=== PATIENT | male | born 1955 | race Caucasian/White ===

== ENCOUNTER 2025-01-26 20:12 | Emergency (ER) | payer MEDICARE ==
[2025-01-26 20:20] VITALS: TEMP 97.5
--- NOTE | 2025-01-26 20:26 | ED ---
Chest Pain HPI - General Chief Complaint: Chest Pain Stated Complaint: chest pain, abd pain Time Seen by Provider: 01/26/25 20:24 Source: patient, RN notes reviewed, old records reviewed Mode of arrival: wheelchair Limitations: no limitations - History of Present Illness Initial Comments: This is a 69 male to ER for evaluation patient presents today for evaluation of chest pain but mainly complaining of abdominal pain right upper quadrant abdominal pain persistent abdominal pain here in the ER. Patient states he thinks it is his gallbladder history of gallbladder disease and occurred after eating dinner tonight. Patient still has abdominal pain here with nausea and vomiting. No history of high blood pressure high cholesterol or diabetes MD Complaint: chest pain -: hour(s) Onset: during rest, after eating Pain Location: right chest, epigastric Pain Radiation: abdomen (Right upper quadrant) Severity: moderate Severity scale (1-10): 4 Quality: aching, sharp Consistency: constant Improves With: nothing Worsens With: nothing Anginal Symptoms: nausea, vomiting Treatments Prior to Arrival: none - Related Data Allergies Allergy/AdvReac Type Severity Reaction Status Date / Time Penicillins AdvReac Vomiting Verified 01/26/25 20:18 Review of Systems ROS Statement: Those systems with pertinent positive or pertinent negative responses have been documented in the HPI. ROS Other: All systems not noted in ROS Statement are negative. EKG Findings - EKG Comments: EKG Findings:: EKG is sinus tachycardia 102 WI 164 QRS 104 QTc 394 - EKG Results: EKG: interpreted by NINA Past Medical History Past Medical History: No Reported History History of Any Multi-Drug Resistant Organisms: None Reported Additional Past Surgical History / Comment(s): tonsil removal Past Psychological History: No Psychological Hx Reported Smoking Status: Never smoker Past Alcohol Use History: None Reported Past Drug Use History: None Reported General Exam Limitations: no limitations General appearance: alert, in no apparent distress Head exam: Present: atraumatic, normocephalic, normal inspection Eye exam: Present: normal appearance, PERRL, EOMI. Absent: scleral icterus, conjunctival injection, periorbital swelling ENT exam: Present: normal exam, mucous membranes moist Neck exam: Present: normal inspection. Absent: tenderness, meningismus, lymphadenopathy Respiratory exam: Present: normal lung sounds bilaterally. Absent: respiratory distress, wheezes, rales, rhonchi, stridor Cardiovascular Exam: Present: regular rate, normal rhythm, normal heart sounds. Absent: systolic murmur, diastolic murmur, rubs, gallop, clicks GI/Abdominal exam: Present: soft, tenderness, normal bowel sounds. Absent: distended, guarding, rebound, rigid Extremities exam: Present: normal inspection, full ROM, normal capillary refill. Absent: tenderness, pedal edema, joint swelling, calf tenderness Back exam: Present: normal inspection Neurological exam: Present: alert, oriented X3, CN II-XII intact Psychiatric exam: Present: normal affect, normal mood Skin exam: Present: warm, dry, intact, normal color. Absent: rash Course Vital Signs 01/26/25 01/26/25 20:20 20:44 Temperature 97.5 F L Pulse Rate 101 H 101 H Respiratory 20 17 Rate Blood Pressure 160/96 144/90 O2 Sat by Pulse 94 L 91 L Oximetry - Reevaluation(s) Reevaluation #1: 01/26/25 22:09 Medical records reviewed Reevaluation #2: 01/26/25 22:09 Patient symptoms improved Reevaluation #3: 01/26/25 22:09 Patient informed of results questions answered Reevaluation #4: Was pt. sent in by a medical professional or institution (, PA, WELLNESS MANAGER, urgent care, hospital, or penitentiary...) When possible be specific @ -no Did you speak to anyone other than the patient for history (EMS, parent, family, police, friend...)? What history was obtained from this source @ -no Did you review nursing and triage notes (agree or disagree)? Why? @ -agree Are old charts reviewed (outside hosp., previous admission, EMS record, old EKG, old radiological studies, urgent care reports/EKG's, penitentiary records)? Report findings @ -yes Differential Diagnosis (chest pain, altered mental status, abdominal pain women, abdominal pain men, vaginal bleeding, weakness, fever, dyspnea, syncope, headache, dizziness, GI bleed, back pain, seizure, CVA, palpatations, mental health, musculoskeletal)? @ -prior EKG interpreted by me (3pts min.). @ -yes X-rays interpreted by me (1pt min.). @ -yes negative for acute disease CT interpreted by me (1pt min.). @ -no U/S interpreted by me (1pt. min.). @ -no What testing was considered but not performed or refused? (CT, X-rays, U/S, labs)? Why? @ -none What meds were considered but not given or refused? Why? @ -none Did you discuss the management of the patient with other professionals (professionals i.e. , PA, WELLNESS MANAGER, lab, RT, psych nurse, social services, mender hand, teacher, licensed mortgage loan officer, nurse outreach case manager)? Give summary @ -no Was smoking cessation discussed for >3mins.? @ -no Was critical care preformed (if so, how long)? @ -no Were there social determinants of health that impacted care today? How? (Homelessness, low income, unemployed, alcoholism, drug addiction, transportation, low edu. Level, literacy, decrease access to med. care, nursing home, rehab)? @ -none Was there de-escalation of care discussed even if they declined (Discuss DNR or withdrawal of care, Hospice)? DNR status @ -no What co-morbidities impacted this encounter? (DM, HTN, Smoking, COPD, CAD, Cancer, CVA, ARF, Chemo, Hep., AIDS, mental health diagnosis, sleep apnea, morbid obesity)? @ -none Was patient admitted / discharged? Hospital course, mention meds given and route, prescriptions, significant lab abnormalities, going to OR and other pertinent info. @ - Undiagnosed new problem with uncertain prognosis? @ -no Drug Therapy requiring intensive monitoring for toxicity (Heparin, Nitro, Insulin, Cardizem)? @ -no Were any procedures done? @ -no Diagnosis/symptom? @ - Acute, or Chronic, or Acute on Chronic? @ -Acute Uncomplicated (without systemic symptoms) or Complicated (systemic symptoms)? @ -Complicated Side effects of treatment? @ -no Exacerbation, Progression, or Severe Exacerbation? @ -exacerbation Poses a threat to life or bodily function? How? (Chest pain, [place], [place], pneumonia, PE, COPD, DKA, ARF, appy, cholecystitis, CVA, Diverticulitis, Homicidal, Suicidal, threat to staff... and all critical care pts) @ -yes Reevaluation #5: Differential Abdominal Pain Men: Appendicitis, cholecystitis, diverticulosis, ischemic bowel, pancreatitis, hepatitis, UTI, gastroenteritis, AAA, incarcerated hernia, bowel obstruction, constipation, inflammatory bowel, hepatitis, peptic ulcer disease, splenic infarction, perforated viscus, testicular torsion, this is not meant to be an all-inclusive list Differential Chest Pain: Stable Angina, Unstable Angina, STEMI, NSTEMI Aortic Dissection, Pneumothorax, Musculoskeletal, Esophageal Spasm GERD, Cholecystitis, Pancreatitis, Zoster, this is not meant to be an all-inclusive list. Disposition Clinical Impression: Biliary colic Disposition: HOME SELF-CARE Instructions (If sedation given, give patient instructions): Biliary Colic (ED) Referrals: Rubens Mena MD [Primary Care Provider] - 1-2 days Justino De La Vega DO [Medical Doctor] - 1-2 days Time of Disposition: 23:00
[2025-01-26] MEDS: HYDROmorphone 1 MG/ML 1 ML SYRINGE IVP STA (20:42)
[2025-01-26 20:49] VITALS: RESP 17
[2025-01-26 20:52] LABS: Basophils # (A) 0.06 10*3/uL (0.00-0.10); Basophils % (A) 0.6 %; Eosinophils # (A) 0.29 10*3/uL (0.04-0.35); Eosinophils % (A) 2.9 %; HCT 38.4 % (39.6-50.0); HGB 12.8 g/dL (13.0-17.0); Lymphocytes % (A) 20.9 %; MCH 29.9 pg (27.0-32.0); MCHC 33.3 g/dL (32.0-37.0); MCV 89.7 fL (80.0-97.0); Mean Platelet Volume 9.6 fL (9.5-12.2); Monocytes # (A) 0.72 10*3/uL (0.20-1.00); Monocytes % (A) 7.2 %; Neutrophils % (A) 67.7 %; Platelet Count 396 10*3/uL (140-440); RBC 4.28 10*6/uL (4.40-5.60); RDW 13.2 % (11.5-14.5); WBC 10.04 10*3/uL (4.50-10.00)
[2025-01-26] MEDS: KETOROLAC 15 MG/ML 1 ML VIAL IVP STA (20:52)
[2025-01-26] MEDS: ONDANSETRON 4 MG/2 ML VIAL IVP STA (20:53)
[2025-01-26] MEDS: PANTOPRAZOLE 40 MG/10 ML VIAL IVP STA (20:55)
--- NOTE | 2025-01-26 20:56 | XR ---
EXAMINATION TYPE: XR chest 2V DATE OF EXAM: 01/26/2025 8:51 PM COMPARISON: None. CLINICAL INDICATION: Male, 69 years old with history of Chest Pain; [facility] TECHNIQUE: XR chest 2V Frontal and lateral views of the chest. FINDINGS: Lungs/Pleura: There is no evidence of pleural effusion, focal consolidation, or pneumothorax. Asymme tric elevation of the left diaphragm with associated left lower lobe compressive atelectasis. Pulmonary vascularity: Unremarkable. Heart/mediastinum: Cardiomediastinal silhouette is unremarkable. Musculoskeletal: No acute osseous pathology. Other findings: None IMPRESSION: No acute cardiopulmonary disease/process. [facility], , 01/26/2025 8:54 PM
[2025-01-26 21:05] LABS: ALT 24 U/L (4-49); African American GFR (CKD) >90 (>60 ml/min/1.73 sqM); Anion Gap 10 mmol/L; Blood Urea Nitrogen 13 mg/dL (9-20); Calcium 9.1 mg/dL (8.4-10.2); Carbon Dioxide 27 mmol/L (22-30); Chloride 103 mmol/L (98-107); Glucose 169 mg/dL (74-99); Lipase 106 U/L (23-300); Non-African American GFR(CKD) >90 (>60 ml/min/1.73 sqM); Sodium 140 mmol/L (137-145); Total Bilirubin 0.5 mg/dL (0.2-1.3); Total Protein 7.4 g/dL (6.3-8.2)
[2025-01-26 21:06] LABS: INR 0.9 (<1.2)
[2025-01-26 21:07] LABS: Prothrombin Time 10.2 sec (10.0-12.5)
[2025-01-26 21:13] LABS: NT-Pro-B-Type Natriuretic Pept 41 pg/mL
[2025-01-26 21:17] LABS: AST 37 U/L (17-59); Alkaline Phosphatase 52 U/L (38-126); Magnesium 2.2 mg/dL (1.6-2.3); Potassium 4.6 mmol/L (3.5-5.1)
--- NOTE | 2025-01-26 21:19 | US ---
EXAMINATION TYPE: US gallbladder DATE OF EXAM: 01/26/2025 COMPARISON: NONE CLINICAL INDICATION: Male, 69 years old with history of pain; RUQ pain x 2 hours after eating TECHNIQUE: Grayscale and color Doppler imaging of the right upper quadrant was performed. FINDINGS: EXAM MEASUREMENTS: Liver Length: 15.4 cm Gallbladder Wall: 0.24 cm CBD: 0.42 cm Right Kidney: 10.0 x 4.8 x 4.9 cm CLOTH NEUTRALIZER NOTES: Limited due to bowel gas and body habitus Pancreas: Obscured by bowel gas Liver: wnl Gallbladder: Cholelithiasis without definite sonographic evidence of gallbladder wall thickening or adjacent pericholecystic fluid. Gallbladder lumen is mildly distended measuring 10 cm in length. Evidence for sonographic Monzon's sign: No CBD: wnl Right Kidney: wnl IMPRESSION: Cholelithiasis and mildly distended gallbladder lumen without convincing sonographic evidence of acut e cholecystitis. Consider nuclear medicine HIDA scan if there is continued clinical concern for acute cholecystitis. [facility], , 01/26/2025 9:16 PM
--- NOTE | 2025-01-26 22:07 | CT ---
EXAMINATION TYPE: CT abdomen pelvis w con DATE OF EXAM: 01/26/2025 9:58 PM COMPARISON: None available. CLINICAL INDICATION: Male, 69 years old with history of cp; right sided abdominal pain, tenderness TECHNIQUE: Axial CT abdomen pelvis w con;Sagittal and coronal reformats were created on a separate w orkstation. Contrast used:100 mL of Isovue 300 with IV Contrast, (none if empty) Oral contrast used: without Oral Contrast (none if empty) CT DLP: 3019 combined mGycm, Automated exposure control for dose reduction was used. FINDINGS: LOWER CHEST: Asymmetric elevation of the right hemidiaphragm. ABDOMEN LIVER: Unremarkable GALLBLADDER AND BILE DUCTS: Layering increased densities within the lumen consistent with gallstones are present. PANCREAS: Unremarkable. SPLEEN: Unremarkable. ADRENAL GLANDS: Unremarkable. KIDNEYS AND URETERS: No evidence of hydronephrosis or renal calculus. The ureters are unremarkable. PELVIS BLADDER: No evidence for wall thickening or mass given limitations of exam. REPRODUCTIVE: Unremarkable. ABDOMEN & PELVIS STOMACH AND BOWEL: Stomach is unremarkable. Small duodenal diverticulum. No evidence of bowel obstruc tion. PERITONEUM/RETROPERITONEUM: No evidence of pneumoperitoneum or free fluid. VASCULATURE: No evidence of aortic aneurysm. MUSCULOSKELETAL: No acute osseous abnormalities LYMPH NODES: No gross evidence for lymphadenopathy. SOFT TISSUE/ABDOMINAL WALL: Fat-containing. Local hernia. IMPRESSION: 1. No acute abnormality in the abdomen/pelvis or CT findings to extent reported symptoms. 2. Cholelithiasis. [facility], , 01/26/2025 10:04 PM
--- NOTE | 2025-01-26 22:15 | CT ---
EXAMINATION TYPE: CT angio chest DATE OF EXAM: 01/26/2025 9:58 PM COMPARISON: None. CLINICAL INDICATION: Male, 69 years old with history of cp; chest pain/pressure TECHNIQUE/CONTRAST: CTA scan of the thorax is performed with IV Contrast, patient injected with 100 mL of Isovue 370, MIP images are created and reviewed these are created on a separate workstation.. CT DLP: 3019 combined mGycm, Automated exposure control for dose reduction was used. FINDINGS: Pulmonary Artery: Nearly nondiagnostic examination for acute pulmonary embolism given suboptimal marito ng of contrast bolus. Lungs/Pleura: Asymmetric elevation of the left hemidiaphragm with lower lobe atelectasis bilaterally. Right middle lobe consolidative changes which could reflect atelectasis and/or pneumonia. Airway: Large airways are patent. Heart: Heart is within normal limits for size. Coronary artery calcifications. Vasculature: No evidence of aortic aneurysm. No acute focal dissection. Mediastinum: No gross evidence of adenopathy. Musculoskeletal: No acute osseous abnormalities Soft Tissues/lymph nodes: Unremarkable. Lower neck: No significant findings. Upper Abdomen: No significant findings. IMPRESSION: 1. Essentially nondiagnostic examination for acute pulmonary embolism due to suboptimal timing of co ntrast bolus. No definite central/main pulmonary embolism. Consider repeat examination if there is co ntinued underlying clinical concern for acute pulmonary embolism. 2. Lower lobe atelectasis and right middle lobe consolidative changes which could reflect additional atelectasis and/or pneumonia. [facility], , 01/26/2025 10:13 PM
[2025-01-26 22:55] VITALS: BP 100/68; PULSE 76
== END 2025-01-26 23:08 | disposition home or self-care (01) ==
LOC: EC 20:12
DX: K80.70 Calculus of gallbladder and bile duct without cholecystitis without obstruction (principal); Z88.0 Allergy status to penicillin
CPT/HCPCS: 36415; 93005; 85379; 83880; 80053; 83690; 83735; 84484; 85025; 85610; 85730; 71046; 76705; 71275; 74177; 99285; 96374; 96375; J2405; J1171; J1885; Q9967; J2470

== ENCOUNTER 2025-04-04 07:38 | Day surgery (SDC) | payer MEDICARE ==
[~2025-04-04 07:38] MED LIST: LIDOCAINE 1% (10MG/ML) FOR IV START INTRADERMA PRN
--- NOTE | 2025-04-04 07:41 | P.GSHP ---
History of Present Illness H&P Date: 04/04/25 CHIEF COMPLAINT: Dysphagia and colon screen HISTORY OF PRESENT ILLNESS: The patient is a 70-year-old male who presents with dysphagia, gastroesophageal reflux disease and need for colon screen. Upper and lower endoscopy were offered for further evaluation and management. PAST MEDICAL HISTORY: Please see list. PAST SURGICAL HISTORY: Please see list. MEDICATIONS: Please see list. ALLERGIES: Please see list. SOCIAL HISTORY: No illicit drug use FAMILY HISTORY: No reports of Crohn disease or ulcerative colitis. REVIEW OF ORGAN SYSTEMS: CONSTITUTIONAL: No reports of fevers or chills. GI: Denies any blood in stools or constipation. PHYSICAL EXAM: VITAL SIGNS: Stable GENERAL: Well-developed pleasant in no acute distress. HEENT: No scleral icterus. Extraocular movements grossly intact. Moist buccal mucosa. NECK: Supple without lymphadenopathy. CHEST: Unlabored respirations. Equal bilateral excursions. CARDIOVASCULAR: Regular rate and rhythm. Distal 2+ pulses. ABDOMEN: Soft, nondistended. MUSCULOSKELETAL: No clubbing, cyanosis, or edema. ASSESSMENT: 1. Dysphagia and gastroesophageal reflux disease 2. Colon screen. PLAN: 1. Recommend proceeding with an upper and lower endoscopy Past Medical History Past Medical History: No Reported History History of Any Multi-Drug Resistant Organisms: None Reported Additional Past Surgical History / Comment(s): tonsil removal Past Psychological History: No Psychological Hx Reported Smoking Status: Never smoker Past Alcohol Use History: None Reported Past Drug Use History: None Reported Medications and Allergies Allergies Allergy/AdvReac Type Severity Reaction Status Date / Time Penicillins AdvReac Vomiting Verified 01/26/25 20:18
[2025-04-04 09:05] LABS: Glucose,Whole Blood 103 mg/dL (70-110)
[2025-04-04] MEDS: LACTATED RINGERS 1,000 ML IV SCH (09:05)
[2025-04-04] MEDS: IV FLUID CONTINUATION 1,000 ML IV ONE (09:05)
[2025-04-04 09:10] VITALS: RESP 16; TEMP 97.3
[2025-04-04] MEDS ORDERED: LIDOCAINE 2% (PF) 20 MG/ML 5 ML VIAL ONE (09:10)
[2025-04-04] MEDS ORDERED: PROPOFOL 10 MG/ML 20 ML VIAL IV ONE (09:10)
--- NOTE | 2025-04-04 09:22 | P.PCN ---
Date of Procedure: 04/04/25 Description of Procedure: PREOPERATIVE DIAGNOSIS: Gastroesophageal reflux disease. Morbid obesity. Acute gastric ulcers POSTOPERATIVE DIAGNOSIS: Gastroesophageal reflux disease. Duodenal polyps Gastritis. OPERATION: Esophagogastroduodenoscopy with cold forceps biopsies along esophagus, antrum and duodenum SURGEON: Alisa Marie MD ANESTHESIA: MAC. INDICATIONS: The patient is a 70-year-old male who presents with gastric ulcers and reflux disease. Benefits and risks of the procedure were described. Informed consent was obtained. DESCRIPTION: The patient was brought into the endoscopy suite and laid in the left lateral decubitus position. An Olympus gastroscope was passed along the posterior oropharynx down to the distal esophagus where the squamocolumnar junction was encountered at 40 cm from the incisors. The stomach was entered and no bile reflux was found. Additional findings are listed below. Biopsies with cold forceps were obtained of the antrum. The first through third portion of the duodenum was examined. Retroflexion of the scope confirmed Hill grade 2 lower esophageal valve. The squamocolumnar junction demonstrated LA grade B erosive esophagitis. The stomach was desufflated. The patient tolerated the procedure well. FINDINGS: Squamocolumnar junction 40 cm from the incisors. Diaphragmatic hiatus at 40 cm. Hill grade 2 lower esophageal valve. LA grade B erosive esophagitis. Biopsies obtained Biopsies obtained of the duodenum. Chronic gastritis with biopsies obtained. Multiple 3 mm duodenal polyp/adenomas first portion of the duodenum, biopsy RECOMMENDATIONS: Repeat upper endoscopy in 1 year, 2025
--- NOTE | 2025-04-04 09:41 | P.PCN ---
Date of Procedure: 04/04/25 Description of Procedure: PREOPERATIVE DIAGNOSIS: Colonoscopy screening POSTOPERATIVE DIAGNOSIS: Tubular adenoma rectum Internal hemorrhoids, grade 3 OPERATION: Colonoscopy to the ascending colon Colonoscopy with hot snare polypectomy SURGEON: Alisa Marie MD. ANESTHESIA: MAC. INDICATIONS: The patient is an 70-year-old male who presents for colon cancer screening. This is his first. Benefits and risks were described and informed consent was obtained. DESCRIPTION OF PROCEDURE: The patient had undergone Suprep. The patient had been brought into the operating room and laid in the left lateral decubitus position. After adequate intravenous sedation, the rectum was examined with 2% lidocaine jelly. The prostate was unremarkable. External hemorrhoids were encountered. The rectal tone was within normal limits. No lesions were palpated in the rectal vault. An Olympus colonoscope was advanced to the ascending colon despite multiple abdominal pressure. The entire scope including polyp was inserted into the rectum with still moderate redundant colon identified. The prep was excellent. No sigmoid diverticulosis was encountered. Colonic polyps were found and removed. No evidence of focal colitis was found. Retroflexion of the scope demonstrated grade 2 internal hemorrhoids without active bleeding or inflammation. The colon was desufflated. The patient had tolerated the procedure well. Withdrawal time was over 6 minutes. FINDINGS: Aronchick preparation quality scale 1 (1-5) Internal hemorrhoids, grade 3 External hemorrhoids, grade 3. No arteriovenous malformations. No sigmoid diverticulosis Removal of 3 polyps: - Snare polypectomy 10 cm from the anal verge x 3, 4 - 6 mm tubulovillous adenoma polyp. No focal colitis. RECOMMENDATIONS: Repeat colonoscopy 3 years2027 Plan - Discharge Summary New Discharge Prescriptions: Continue Ezetimibe [Zetia] 10 mg PO DAILY lisinopriL [Zestril] 10 mg PO DAILY Discharge Medication List Ezetimibe [Zetia] 10 mg PO DAILY 04/04/25 [History] lisinopriL [Zestril] 10 mg PO DAILY 04/04/25 [History] Follow up Appointment(s)/Referral(s): Alisa Marie MD [STAFF PHYSICIAN] - 04/23/25 1:30 pm Patient Instructions/Handouts: Colorectal Polyps (GEN), Gastritis (DC) Activity/Diet/Wound Care/Special Instructions: Follow-up colonoscopy 3 years, 2027 Discharge Disposition: HOME SELF-CARE
[2025-04-04 09:57] VITALS: BP 143/89; PULSE 67
== END 2025-04-04 10:21 | disposition home or self-care (01) ==
LOC: ORWHC2ENDO 07:38
PROVIDERS: ATTEND Surgery Plastic and Reconstructive Surgery
DX: Z12.11 Encounter for screening for malignant neoplasm of colon (principal); K25.3 Acute gastric ulcer without hemorrhage or perforation; K29.50 Unspecified chronic gastritis without bleeding; K21.00 Gastro-esophageal reflux disease with esophagitis, without bleeding; K62.1 Rectal polyp; K31.7 Polyp of stomach and duodenum; K64.2 Third degree hemorrhoids; E66.01 Morbid (severe) obesity due to excess calories; Z88.0 Allergy status to penicillin
CPT/HCPCS: 45385; 43239; J2704; J2003; 88305

== ENCOUNTER 2025-04-26 08:09 | Day surgery (SDC) | payer MEDICARE ==
[2025-04-25 10:34] VITALS: BMI 37.4
[~2025-04-26 08:09] MED LIST changes: +HYDROmorphone 0.5 MG/0.5 ML SYRINGE IVP PRN; +INDOCYANINE GREEN 25 MG VIAL IV STA
[2025-04-26] MEDS: IV FLUID CONTINUATION 1,000 ML IV ONE (08:34)
[2025-04-26] MEDS: LACTATED RINGERS 1,000 ML IV SCH (08:34)
[2025-04-26] MEDS: HEPARIN SODIUM,PORCINE 5,000 UNIT/ML 1 ML VIAL SQ PRN (08:43)
[2025-04-26] MEDS: ONDANSETRON 4 MG/2 ML VIAL IVP PRN (08:43)
[2025-04-26] MEDS: ACETAMINOPHEN TAB 500 MG TAB PO PRN (08:43)
[2025-04-26] MEDS: DEXAMETHASONE SOD PHOSPHATE 4 MG/ML 1 ML VIAL IV ONE (08:44)
[2025-04-26 08:55] LABS: Basophils # (A) 0.05 10*3/uL (0.00-0.10); Basophils % (A) 0.6 %; Eosinophils # (A) 0.26 10*3/uL (0.04-0.35); Eosinophils % (A) 3.0 %; HCT 39.9 % (39.6-50.0); HGB 13.3 g/dL (13.0-17.0); Lymphocytes # (A) 2.03 10*3/uL (0.90-5.00); Lymphocytes % (A) 23.3 %; MCH 29.6 pg (27.0-32.0); MCHC 33.3 g/dL (32.0-37.0); MCV 88.9 fL (80.0-97.0); Monocytes # (A) 0.55 10*3/uL (0.20-1.00); Monocytes % (A) 6.3 %; Neutrophils # (A) 5.80 10*3/uL (1.80-7.70); Neutrophils % (A) 66.6 %; Platelet Count 328 10*3/uL (140-440); RBC 4.49 10*6/uL (4.40-5.60); RDW 13.5 % (11.5-14.5); WBC 8.71 10*3/uL (4.50-10.00)
[2025-04-26 09:07] LABS: Glucose,Whole Blood 113 mg/dL (70-110)
[2025-04-26] MEDS ORDERED: LIDOCAINE 1% INJ 10MG/ML (20 ML MDV) ONE (09:09)
[2025-04-26] MEDS ORDERED: SUCCINYLCHOLINE CHLORIDE 200 MG/10 ML VIAL IV ONE (09:09)
[2025-04-26] MEDS ORDERED: HYDROmorphone (PF) 1 MG/ML ONE (09:09)
[2025-04-26] MEDS ORDERED: PROPOFOL 10 MG/ML 20 ML VIAL IV ONE (09:09)
[2025-04-26] MEDS ORDERED: fentaNYL (PF) 50 MCG/ML 2 ML AMP ONE (09:09)
[2025-04-26] MEDS ORDERED: NEOSTIGMINE 1 MG/ML 10 ML VIAL ONE (09:09)
[2025-04-26] MEDS ORDERED: ePHEDrine 50 MG/ML 1 ML VIAL ONE (09:09)
[2025-04-26] MEDS ORDERED: ROCURONIUM 10 MG/ML (5 ML VIAL) IV ONE (09:09)
[2025-04-26] MEDS ORDERED: GLYCOPYRROLATE 0.2 MG/ML 2 ML VIAL ONE (09:09)
[2025-04-26] MEDS ORDERED: MIDAZOLAM 2 MG/2 ML VIAL ONE (09:09)
[2025-04-26 09:10] LABS: ALT 16 U/L (4-49); AST 24 U/L (17-59); African American GFR (CKD) >90 (>60 ml/min/1.73 sqM); Albumin 4.2 g/dL (3.5-5.0); Alkaline Phosphatase 57 U/L (38-126); Anion Gap 11 mmol/L; Blood Urea Nitrogen 14 mg/dL (9-20); Calcium 9.0 mg/dL (8.4-10.2); Carbon Dioxide 24 mmol/L (22-30); Chloride 107 mmol/L (98-107); Glucose 108 mg/dL (74-99); Non-African American GFR(CKD) >90 (>60 ml/min/1.73 sqM); Potassium 4.5 mmol/L (3.5-5.1); Sodium 142 mmol/L (137-145); Total Protein 7.2 g/dL (6.3-8.2)
[2025-04-26] MEDS: LIDOCAINE 1%-EPI 1:100,000 20 ML VIAL SQ ONE (09:49)
[2025-04-26] MEDS: LACTATED RINGERS 1,000 ML IV ONE (10:21)
[2025-04-26 10:48] VITALS: TEMP 96.9
[2025-04-26 10:51] LABS: Glucose,Whole Blood 142 mg/dL (70-110)
--- NOTE | 2025-04-26 11:06 | P.GSHP ---
History of Present Illness H&P Date: 04/26/25 CHIEF COMPLAINT: Cholecystitis HISTORY OF PRESENT ILLNESS: The patient is a 52-year-old male who presents with history of epigastric including right upper quadrant abdominal pain. He underwent diagnostic studies for the gallbladder. Separately his clinical picture was consistent with cholecystitis. Now he presents for surgical intervention. PAST MEDICAL HISTORY: Please see list PAST SURGICAL HISTORY: Please see list MEDICATIONS: Please see list ALLERGIES: Denies. SOCIAL HISTORY: No illicit drug use or recent tobacco use FAMILY HISTORY: Pertinent for gallbladder disease REVIEW OF ORGAN SYSTEMS: CONSTITUTIONAL: No reports of fevers or chills. HEENT: Denies any troubles with the vision or hearing. ENDOCRINE: No reports of hypothyroidism. No diabetes. RESPIRATORY: No recent pneumonias. CARDIOVASCULAR: Denies chest pain or palpitations GI: No blood in stools or constipation. MUSCULOSKELETAL: Has occasional joint pain including back pain. NEURO: No seizure disorders or headaches. No recent stroke. PSYCH: No depression or suicidal ideation. HEMATOLOGIC: No personal or family history of DVTs or pulmonary emboli. PHYSICAL EXAM: VITAL SIGNS: Afebrile vital signs stable GENERAL: Well-developed pleasant male in no acute distress. HEENT: No scleral icterus. Extraocular movements grossly intact. Moist buccal mucosa. NECK: Supple without lymphadenopathy. CHEST: Unlabored respirations. Equal bilateral excursions. CARDIOVASCULAR: Regular rate regular rhythm rhythm. Distal 2+ pulses. ABDOMEN: Soft, nondistended. Tender along the epigastrium and right upper quadrant. MUSCULOSKELETAL: No clubbing, cyanosis, or edema. NEURO : No focal or lateralizing signs. Cranial nerves II-12 within normal limits. PSYCH: Alert and oriented to person, place and time. SKIN: Well perfused. Good skin turgor. ASSESSMENT: 1. Epigastric and right upper quadrant abdominal pain 2. Chronic cholecystitis PLAN: 1. Will need a robotic cholecystectomy possible open. Benefits and risks were described. 2. Heparin for DVT prophylaxis 5000 units. 3. Antibiotic prophylaxis. 4. CBC and CMP on day of procedure 5. Non-narcotic pre and post op pain management reviewed. 6. Indocyanine green for biliary imaging. Past Medical History Past Medical History: Diabetes Mellitus, Hyperlipidemia, Hypertension Additional Past Medical History / Comment(s): Diet controlled Diabetes. History of Any Multi-Drug Resistant Organisms: None Reported Past Surgical History: Tonsillectomy Additional Past Surgical History / Comment(s): EGD, Colonoscopy. Past Anesthesia/Blood Transfusion Reactions: No Reported Reaction Smoking Status: Never smoker - Past Family History Father Family Medical History: Cancer Mother Family Medical History: Cancer Sister(s) Family Medical History: Cancer Medications and Allergies Home Medications Medication Instructions Recorded Confirmed Type Ezetimibe [Zetia] 20 mg PO DAILY 04/04/25 04/26/25 History lisinopriL [Zestril] 10 mg PO QAM 04/04/25 04/26/25 History Acetaminophen Tab [Tylenol Tab] 1,000 mg PO Q6HR PRN #30 tablet 04/26/25 Rx Ibuprofen [Motrin] 600 mg PO Q8HR PRN #30 tab 04/26/25 Rx Simethicone [Gas-X] 125 mg PO AC-TID PRN #20 capsule 04/26/25 Rx Allergies Allergy/AdvReac Type Severity Reaction Status Date / Time Penicillins AdvReac Vomiting Verified 04/26/25 08:21 Surgical - Exam Vital Signs Temp Pulse Resp BP Pulse Ox 97.4 F L 67 16 137/81 96 04/26/25 08:24 04/26/25 08:24 04/26/25 08:24 04/26/25 08:24 04/26/25 08:24 Results - Labs 04/26/25 08:40 04/26/25 08:40 Abnormal Lab Results - Last 24 Hours (Table) 04/26/25 04/26/25 04/26/25 Range/Units 08:40 09:07 10:50 Glucose 108 H (74-99) mg/dL POC Glucose (mg/dL) 113 H 142 H (70-110) mg/dL Diabetes panel 04/26/25 Range/Units 08:40 Sodium 142 (137-145) mmol/L Potassium 4.5 (3.5-5.1) mmol/L Chloride 107 (98-107) mmol/L Carbon Dioxide 24 (22-30) mmol/L BUN 14 (9-20) mg/dL Creatinine 0.79 (0.66-1.25) mg/dL Glucose 108 H (74-99) mg/dL Calcium 9.0 (8.4-10.2) mg/dL AST 24 (17-59) U/L ALT 16 (4-49) U/L Alkaline Phosphatase 57 (38-126) U/L Total Protein 7.2 (6.3-8.2) g/dL Albumin 4.2 (3.5-5.0) g/dL Calcium panel 04/26/25 Range/Units 08:40 Calcium 9.0 (8.4-10.2) mg/dL Albumin 4.2 (3.5-5.0) g/dL Pituitary panel 04/26/25 Range/Units 08:40 Sodium 142 (137-145) mmol/L Potassium 4.5 (3.5-5.1) mmol/L Chloride 107 (98-107) mmol/L Carbon Dioxide 24 (22-30) mmol/L BUN 14 (9-20) mg/dL Creatinine 0.79 (0.66-1.25) mg/dL Glucose 108 H (74-99) mg/dL Calcium 9.0 (8.4-10.2) mg/dL Adrenal panel 04/26/25 Range/Units 08:40 Sodium 142 (137-145) mmol/L Potassium 4.5 (3.5-5.1) mmol/L Chloride 107 (98-107) mmol/L Carbon Dioxide 24 (22-30) mmol/L BUN 14 (9-20) mg/dL Creatinine 0.79 (0.66-1.25) mg/dL Glucose 108 H (74-99) mg/dL Calcium 9.0 (8.4-10.2) mg/dL Total Bilirubin 0.6 (0.2-1.3) mg/dL AST 24 (17-59) U/L ALT 16 (4-49) U/L Alkaline Phosphatase 57 (38-126) U/L Total Protein 7.2 (6.3-8.2) g/dL Albumin 4.2 (3.5-5.0) g/dL
--- NOTE | 2025-04-26 11:09 | P.OP ---
Date of Procedure: 04/26/25 Description of Procedure: SURGEON: ALISA MARIE MD PREOPERATIVE DIAGNOSES: 1. Symptomatic gallstones 2. Right upper quadrant abdominal pain 3. Obesity to excess calories, BMI 37.7, class III obesity 4. Hypertensive heart disease 5. Diabetes type 2 [id number] 6. Hyperlipidemia POSTOPERATIVE DIAGNOSES: 1. Symptomatic gallstones 2. Right upper quadrant abdominal pain 3. Obesity to excess calories, BMI 37.7, class III obesity 4. Hypertensive heart disease 5. Fatty liver disease 6. Hyperlipidemia 7. Diabetes type 2 [id number] OPERATION: Robotic-assisted da Sam Xi laparoscopic cholecystectomy, multiport with FIREFLY ESTIMATED BLOOD LOSS: 5 mL. SPECIMENS REMOVED: Gallbladder. COMPLICATIONS: None. OPERATIVE FINDINGS: 1. Moderate scarring over entire gallbladder with peritoneal adhesions, pericholecystic with features of chronic cholecystitis 2. Fatty liver disease INDICATIONS: The patient is a 70-year-old male who presents with symptomatic gallstones. Robotic assisted laparoscopic approach was described. Benefits and risks of the procedure including but not limited to bleeding, infection, injury to the biliary tree was described. Informed consent was obtained. DESCRIPTION OF PROCEDURE: Patient was brought to the operating room, placed in supine position. After general induction, the abdomen had been prepped and draped in standard sterile fashion. The robotic da Sam XI system was primed. After a timeout protocol was performed, the patient had been prepped and draped in standard sterile fashion. The patient was injected with indocyanine green. A 5 mm 0 degrees laparoscopic trocar entry was performed along the left upper quadrant. The abdomen insufflated to 15 mmHg pressure which was tolerated well. Diagnostic laparoscopy demonstrated no injury to bowel viscera or mesentery. The liver surface was remarkable for fatty liver disease, mild. Next, two 8 mm robotic ports were placed along the right upper abdomen. The camera 8-mm port was maintained along the epigastrium. Another 8 mm port was placed along the left upper abdominal wall after exchanging the 5 mm port. Please note that the ports were placed at least 10 to 15 cm away from the target anatomy of the gallbladder. The robot was docked along the left lateral abdomen. The patient was repositioned in reverse Trendelenburg position. Using a grasper for arm 1, a grasper for arm 4, including hook cautery for arm 3, the robotic system was docked and primed as described. Instruments were interchanged by the assistant associate full professor including hook cautery, Bovie cautery and clip appliers. I had sat at the console. The gallbladder was scarred with peritoneal adhesions. Lysis of adhesions was performed to free the gallbladder from the surrounding tissues. Dome down technique from gallbladder fundus to infundibulum was performed next attention was brought to the infundibulum and cystic structures. The infundibulum and cystic duct were dissected free from surrounding tissues. The cystic duct was isolated. FIREFLY was used to identify the cystic artery and cystic structures. A critical view of safety was obtained. Large PLASTIC clips were used throughout the entire case. Using a clip automation and control engineer, 3 clips were placed at the junction of the infundibulum and cystic duct. The cystic duct was divided between clips. Next, the cystic artery was similarly clipped and cauterized. Total of 4 clips left in hepatic fossa. Electro-Bovie cautery was used to remove the gallbladder from the hepatic fossa. Hemostasis was checked and found to be adequate. The robot was undocked. I re-scrubbed into the case. Using a 10 mm Endo Catch bag via the left upper quadrant incision, the specimen was removed from the abdominal cavity. All pneumoperitoneum instruments were evacuated from the abdominal cavity. The incisions were reapproximated using 4-0 Monocryl in an interrupted subcuticular fashion. Fascial defects were less than 8 mm in size. Please note along the trocar sites, local anesthetic was placed as a field block prior to insertion of all instruments. Liquid glue was applied to the skin. At the end of the procedure needle, sponge, and instrument count had been verified correct by the surgical resident. The patient was transferred to postanesthesia care unit in stable condition. Intraoperative films were shared with the patient's family. Plan - Discharge Summary Discharge Rx Participant: No New Discharge Prescriptions: New Ibuprofen [Motrin] 600 mg PO Q8HR PRN #30 tab PRN Reason: Pain Simethicone [Gas-X] 125 mg PO AC-TID PRN #20 capsule PRN Reason: Pain Acetaminophen Tab [Tylenol Tab] 1,000 mg PO Q6HR PRN #30 tablet PRN Reason: Pain Continue Ezetimibe [Zetia] 20 mg PO DAILY lisinopriL [Zestril] 10 mg PO QAM Discharge Medication List Ezetimibe [Zetia] 20 mg PO DAILY 04/04/25 [History] lisinopriL [Zestril] 10 mg PO QAM 04/04/25 [History] Acetaminophen Tab [Tylenol Tab] 1,000 mg PO Q6HR PRN #30 tablet 04/26/25 [Rx] Ibuprofen [Motrin] 600 mg PO Q8HR PRN #30 tab 04/26/25 [Rx] Simethicone [Gas-X] 125 mg PO AC-TID PRN #20 capsule 04/26/25 [Rx] Follow up Appointment(s)/Referral(s): Alisa Marie MD [STAFF PHYSICIAN] - 04/30/25 6:30 pm ([facility] - Will call you at home) Patient Instructions/Handouts: Laparoscopic Cholecystectomy (GEN) Activity/Diet/Wound Care/Special Instructions: [facility] - DR WILL CALL YOU BETWEEN 9 am to 8 pm NO LONG DRIVES OR AIRPLANE RIDES OVER 90 MINUTES FOR THE NEXT 2 WEEKS, May 10, DUE TO HIGH RISK OF PULMONARY EMBOLISM/DVTs May drive in 24 hrs Recommend low-fat diet for the next 2 days. No lifting over 10 pounds in 2 weeks until May 10February shower. No bath tub soaks for two weeks until May 10 Diet as tolerated. Use Tylenol, simethicone and ibuprofen or Aleve scheduled for the next 24-48 hours for best pain relief. Use ice along incisions for today to prevent swelling. Discharge Disposition: HOME SELF-CARE
[2025-04-26] MEDS: IPRATROPIUM-ALBUTEROL 3 ML NEB INHALATION STA (11:45)
[2025-04-26] MEDS: ONDANSETRON 4 MG/2 ML VIAL IVP ONE (11:46)
[2025-04-26] MEDS: droPERidol 2.5 MG/ML VIAL IVP ONE (11:56)
[2025-04-26 15:03] VITALS: BP 123/77; PULSE 89; RESP 18
[2025-04-26] MEDS: TAMSULOSIN 0.4 MG CAP.ER.24H PO STA (15:04)
[2025-04-26 15:08] LABS: Glucose,Whole Blood 145 mg/dL (70-110)
--- NOTE | 2025-04-26 15:52 | P.PN ---
Progress Note - Text Progress Note Date: 04/26/25 Patient seen in phase 2 recovery and reports pre-existing chronic bladder urgency. Patient had not urinated despite bladder scan at 250 cc. Will prescribe short-term Flomax with one-time dose given phase 2 recovery for discharge
== END 2025-04-26 15:49 | disposition home or self-care (01) ==
LOC: OR 08:09
PROVIDERS: ATTEND Surgery Plastic and Reconstructive Surgery
DX: K80.10 Calculus of gallbladder with chronic cholecystitis without obstruction (principal); K42.0 Umbilical hernia with obstruction, without gangrene; K66.0 Peritoneal adhesions (postprocedural) (postinfection); E11.9 Type 2 diabetes mellitus without complications; E66.813 Obesity, class 3; E78.5 Hyperlipidemia, unspecified; I11.9 Hypertensive heart disease without heart failure; K76.0 Fatty (change of) liver, not elsewhere classified; Z68.37 Body mass index [BMI] 37.0-37.9, adult; Z88.0 Allergy status to penicillin; Z79.899 Other long term (current) drug therapy
CPT/HCPCS: 47562; 88304; 80053; 85025; J2250; J0330; J1644; J1100; J2710; J0690; J2405; J2003; J3010; J1171; J2704; J1596; J1790